=== PATIENT | male | born 1990 | race Caucasian/White ===

== ENCOUNTER 2022-11-18 16:27 | Emergency (ER) | payer MEDICAID, SELFPAY ==
--- NOTE | 2022-11-18 17:32 | ED.GENADULT ---
HPI - General Adult General Chief complaint: General Medical <DIANNE Robles - Last Filed: 11/18/22 17:33> Stated complaint: Sore Throat <DIANNE Robles - Last Filed: 11/18/22 17:33> Time Seen by Provider: 11/18/22 18:43 <DIANNE Robles - Last Filed: 11/18/22 17:33> Source: patient <DIANNE Welch - Last Filed: 11/18/22 18:50> Mode of arrival: ambulatory <DIANNE Welch - Last Filed: 11/18/22 18:50> Limitations: no limitations <DIANNE Welch Last Filed: 11/18/22 18:50> History of Present Illness HPI narrative: 32-year-old male with history of asthma presents the ER for evaluation of sore throat, tonsils swelling with white dots any noticed couple of days ago. He states his sore throat has been worsening for the last 3 days. He reports pain with swallowing. He also has some body aches and generalized fatigue. He thinks he might have strep throat. He took a dose of a leftover antibiotic with no improvement. He denies any known sick contacts. He denies any shortness of breath or fevers. <DIANNE Welch - Last Filed: 11/18/22 18:50> MD complaint: Sore throat <DIANNE Welch - Last Filed: 11/18/22 18:50> Onset (ago): day(s) (3) <DIANNE Welch - Last Filed: 11/18/22 18:50> Location: mouth and neck <DIANNE Welch Last Filed: 11/18/22 18:50> Radiation: non-radiation <DIANNE Welch Last Filed: 11/18/22 18:50> Severity: moderate <DIANNE Welch Last Filed: 11/18/22 18:50> Severity scale (1-10): 7 <DIANNE Welch Last Filed: 11/18/22 18:50> Quality: aching <DIANNE Welch Last Filed: 11/18/22 18:50> Pain Consistency: constant <DIANNE Welch Last Filed: 11/18/22 18:50> Relieving factors: none <DIANNE Welch Last Filed: 11/18/22 18:50> Exacerbating factors: eating <DIANNE Welch - Last Filed: 11/18/22 18:50> Associated symptoms: headaches and weakness <DIANNE Welch Last Filed: 11/18/22 18:50> Treatments prior to arrival: none <DIANNE Welch Last Filed: 11/18/22 18:50> Related Data Home medications: Previous Rx's Medication Instructions Recorded albuterol sulfate 90 mcg/actuation 2 puff inhalation Q4-6H PRN 11/18/22 aerosol inhaler shortness of breath or wheezing #6.7 grams amoxicillin 500 mg capsule 500 mg PO BID #20 caps 11/18/22 ibuprofen 800 mg tablet 800 mg PO Q8H PRN fever or pain 11/18/22 #10 tabs <DIANNE Robles - Last Filed: 11/18/22 17:33> Allergies/adverse reactions: Allergies Allergy/AdvReac Type Severity Reaction Status Date / Time No Known Allergies Allergy Verified 11/18/22 17:32 <DIANNE Robles - Last Filed: 11/18/22 17:33> Review of Systems Review of Systems: Yes all other systems are reviewed and are negative <DIANNE Welch Last Filed: 11/18/22 18:50> [facility] Social History Social History: Social History Advance Directives: No Advance Directives Information Provided: No <DIANNE Rolbes Last Filed: 11/18/22 17:33> Physical Exam ED Vital Signs: Vital Signs - 24 hr 11/18/22 17:33 Temperature 99.7 F Pulse Rate 87 Respiratory Rate 18 Blood Pressure 103/69 Pulse Oximetry 96 Oxygen Delivery Method Room Air BMI result Body Mass Index 21.4 <DIANNE Robles Last Filed: 11/18/22 17:33> Vital Signs - 24 hr 11/18/22 17:33 Temperature 99.7 F Pulse Rate 87 Respiratory Rate 18 Blood Pressure 103/69 Pulse Oximetry 96 Oxygen Delivery Method Room Air BMI result Body Mass Index 21.4 <DIANNE Welch Last Filed: 11/18/22 18:50> Appearance: Alert. Oriented X3. No acute distress. Head: normocephalic, atraumatic. Eyes: Pupils equal, round and reactive to light. ENT: Pharynx with moist mucous membranes. + tonsillar swelling and bilateral exudate. Uvula midline. Normal voice, handling secretions normally. Normal tympanic membranes bilaterally. Neck: Normal inspection. Neck supple. CVS: Normal heart rate and rhythm. Pulses normal. Respiratory: No respiratory distress. Breath sounds with faint end-expiratory wheeze in the left lower lobe only. Skin: Skin warm and dry. Normal skin color. Normal skin turgor. No rashes. Extremities: No lower extremity edema. No joint swelling. Neuro/psych: Oriented X 3. Grossly normal, nonfocal Normal speech and cognition. <DIANNE Welch Last Filed: 11/18/22 18:50> Course Course Course Narrative: RME performed by Ayleen Orlando PA-C. Patient is a 32 year old assigned male at presenting to the emergency department with a sore throat. Swabs ordered. Patient placed back in the waiting room pending room availability and results. <DIANNE Robles Last Filed: 11/18/22 17:33> Medical Decision Making Medical Decision Making MDM Narrative: 32-year-old male presents to the ER for evaluation of sore throat, swollen tonsils with white spots for the last 3 days. COVID is negative here. He did test negative for strep throat. However given his clinical presentation and physical exam his case is most consistent with acute strep pharyngitis. Will start on amoxicillin and treat for 10 days. He also has a slight end-expiratory wheeze in the left lower lobe. He has a history of asthma, ran out of his inhaler. Will prescribe. No rhonchi to suggest pneumonia, no productive cough. His vital signs remained stable. He is stable for discharge home with oral antibiotics, p.r.n. albuterol, NSAID for pain control. Patient agrees with plan. Workup provided per request. <DIANNE Welch Last Filed: 11/18/22 18:50> Differential Diagnosis Differential Diagnoses: The differential diagnosis associated with the presentation includes <DIANNE Welch Last Filed: 11/18/22 18:50> strep, covid, flu, rsv, other viral syndrome, bronchitis, pneumonia, no evidence of peritonsillar abcsess or retropharyngeal abscess <DIANNE Welch Last Filed: 11/18/22 18:50> Lab Data MDM Lab Attestation statement: I reviewed the patient's lab results. <DIANNE Welch - Last Filed: 11/18/22 18:50> Labs: Lab Results 11/18/22 11/18/22 Range/Units 17:54 17:56 COVID-19 (JEREMIAS) Negative (Negative) COVID-19 Clin Com See Note S. pyogenes GrpA BRIAN Negative (Negative) <DIANNE Robles Last Filed: 11/18/22 17:33> Lab Results 11/18/22 11/18/22 Range/Units 17:54 17:56 COVID-19 (JEREMIAS) Negative (Negative) COVID-19 Clin Com See Note S. pyogenes GrpA BRIAN Negative (Negative) <DIANNE Welch Last Filed: 11/18/22 18:50> External Record Review External record reviewed: Prior outpatient labs <DIANNE Welch Last Filed: 11/18/22 18:50> Prescription Management I considered prescription management with: Pain Medication and Antibiotic <DIANNE Welch Last Filed: 11/18/22 18:50> Chronic Conditions Patient?s care impacted by: Other (Asthma) <DIANNE Welch Last Filed: 11/18/22 18:50> Critical Care Time Critical Care Time Critical Care Time: No <DIANNE Welch Last Filed: 11/18/22 18:50> Discharge Plan Discharge Clinical Impression: Strep throat <DIANNE Robles Last Filed: 11/18/22 17:33> Patient Disposition: Home, Self-Care <DIANNE Robles Last Filed: 11/18/22 17:33> Instructions: Strep Throat (DC) <DIANNE Robles Last Filed: 11/18/22 17:33> Additional Instructions: Take the prescribed medication for strep throat. Complete the entire course, do not miss any doses. Recommend gargling with warm salt water 3 times per day. Recommend [id number] Chloraseptic spray and Cepacol lozengegs to help numb the back of your throat. Rest and stay hydrated, make sure drinking plenty of water. Take [id number] cold and flu medications as needed for your other symptoms. Follow-up with your doctor next week. If you develop new or worsening symptoms call 911 or come back to the ER for further evaluation. <DIANNE Robles - Last Filed: 11/18/22 17:33> Prescriptions: New amoxicillin 500 mg capsule 500 mg PO BID Qty: 20 0RF ibuprofen 800 mg tablet 800 mg PO Q8H PRN (Reason: fever or pain) Qty: 10 0RF albuterol sulfate 90 mcg/actuation HFA aerosol inhaler 2 puff inhalation Q4-6H PRN (Reason: shortness of breath or wheezing) Qty: 6.7 0RF <DIANNE Robles - Last Filed: 11/18/22 17:33> Referrals: Thor Szymanski MD [Primary Care Provider] - <DIANNE Robles - Last Filed: 11/18/22 17:33> Stand Alone Forms: Work/School Release <DIANNE Robles - Last Filed: 11/18/22 17:33>
[2022-11-18 17:33] VITALS: BP 103/69; PULSE 87; RESP 18; TEMP 37.6; O2SAT 96; BMI 21.4
[2022-11-18 18:27] LABS: IDNOW Serial# 08D9AD1C; Strep A Nucleic Acid Negative (Negative)
[2022-11-18 18:37] LABS: COVID-19 Test Negative (Negative); IDNOW Serial# 9DB6401D
== END 2022-11-18 18:56 | disposition home or self-care (01) ==
PROVIDERS: Physician Assistant Medical; Emergency Provider Emergency Medicine; PCP Emergency Medicine
DX: J02.0 Streptococcal pharyngitis (principal); Z20.822 Contact with and (suspected) exposure to COVID-19
CPT/HCPCS: 87635; 87651; 99282; 99283

== ENCOUNTER 2023-03-07 18:53 | Emergency (ER) | payer MEDICAID, SELFPAY ==
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
[2023-03-07 18:54] VITALS: BP 116/79; PULSE 133; RESP 22; O2SAT 99; BMI 22.8
[2023-03-07 18:57] VITALS: BP 115/78; PULSE 114; RESP 20; O2SAT 98
[2023-03-07] MEDS: 0.9 % Sodium Chloride 1,000 ML 999 ML IV (18:58)
[2023-03-07 19:13] LABS: MANUAL DIFF FLAG NO
[2023-03-07 19:15] LABS: Basophils Percent Auto 0.3 % (0-2); Eosinophils Absolute Auto 0.2 X10*3/uL (0.0-0.4); Eosinophils Percent Auto 1.6 % (0-4); Hematocrit 43.2 % (42.0-52.0); Hemoglobin 13.3 g/dl (14.0-18.0); Imm Gran Abs Auto 0.05 X10*3/uL (0.00-0.03); Imm Gran Pct Auto 0.5 % (0.0-0.4); Lymphocytes Absolute Auto 2.3 X10*3/uL (1.2-4.9); Mean Corpuscular HGB Conc 30.8 g/dl (31.0-36.0); Mean Corpuscular Hemoglobin 25.6 pg (27.0-33.0); Mean Corpuscular Volume 83.1 fL (80.0-98.0); Mean Platelet Volume 8.5 fL (9.4-12.4); Monocytes Absolute Auto 0.8 X10*3/uL (0.1-1.2); Monocytes Percent Auto 7.1 % (2-11); Neutrophils Absolute Auto 7.7 x10*3/uL (2.0-8.3); Neutrophils Percent Auto 69.5 % (45-73); Platelet Count 214 X10*3/uL (160-400); Red Cell Distribution Width 13.4 % (11.0-16.0); White Blood Count 11.1 X10*3/uL (4.8-10.8)
[2023-03-07 19:53] LABS: Alanine Aminotransferase 12 U/L (0-40); Albumin Level 4.6 g/dL (3.5-5.0); Alkaline Phosphatase 93 U/L (39-117); Anion Gap 27 (12-20); Aspartate Amino Transferase 15 U/L (5-37); Bilirubin Total 0.7 mg/dL (0.0-1.0); Blood Urea Nitrogen 14 mg/dL (9-16); Calcium 9.4 mg/dL (8.4-10.2); Carbon Dioxide 16 mmol/L (22-29); Chloride 103 mmol/L (96-108); Creatinine Clr Calc Pharmacy 115.7; Estimated Glomerular Filt Rate > 60; Glucose Random 142 mg/dL (60-115); Potassium 3.2 mmol/L (3.3-5.1); Sodium 143 mmol/L (135-145); Total Protein 8.1 g/dL (6.5-8.0)
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
[2023-03-07] MEDS: Ketorolac Tromethamine 30 MG/ML VIAL IVPUSH (20:55)
[2023-03-07] MEDS: Diphth,Pertus(ACell),Tet Adult 0.5 ML SYRINGE IM (20:56)
[2023-03-07 20:59] VITALS: BP 106/67; PULSE 89; RESP 15; TEMP 37.4; O2SAT 98
== END 2023-03-07 21:26 | disposition home or self-care (01) ==
PROVIDERS: Emergency Provider Internal Medicine
DX: S41.012A Laceration without foreign body of left shoulder, initial encounter (principal); S42.192A Fracture of other part of scapula, left shoulder, initial encounter for closed fracture; X99.1XXA Assault by knife, initial encounter; Y93.01 Activity, walking, marching and hiking; Y92.414 Local residential or business street as the place of occurrence of the external cause; Y99.9 Unspecified external cause status
CPT/HCPCS: 12001; 36415; 71045; 71250; 80053; 85025; 90471; 90715; 96361; 96374; 96375; 99284; 99285; J0690; J1885

== ENCOUNTER 2024-09-04 23:20 | Emergency (ER) | payer MEDICAID, SELFPAY ==
[2024-09-04 23:44] VITALS: BP 80/38; PULSE 50; RESP 18; TEMP 37.2; O2SAT 97; BMI 21.3
[2024-09-04 23:54] VITALS: BP 80/33
--- NOTE | 2024-09-04 23:54 | PC.NURSE ---
pt A&Ox4 speaking clear full sentences, denies lightheaded or dizziness, states his BP is usually low. This RN took it 3 different times all with similar result.
[2024-09-04 23:56] VITALS: BP 88/47
[2024-09-05 00:13] LABS: IDNOW Serial# 58CA691E; Strep A Nucleic Acid Negative (Negative)
[2024-09-05 00:19] LABS: COVID-19 Test Negative (Negative); IDNOW Serial# 55D5AD1C
[2024-09-05 00:22] LABS: IDNOW Serial# 6674DD1D; Influenza A Negative (Negative); Influenza B2 Negative (Negative)
--- NOTE | 2024-09-05 00:35 | ED_ITS ---
HPI - General Adult General Chief complaint: General Medical Stated complaint: strep throat? Time Seen by Provider: 09/05/24 00:09 Source: patient Mode of arrival: ambulatory Limitations: no limitations History of Present Illness ED Provider: Mateo Hammond HPI narrative: 34 yold male presents to the ED for sore throat, headache, nuasea, and subjective fevers for one week. Patient denies any other symptoms. Related Data Previous Rx's ?Medication ?Instructions ?Recorded albuterol sulfate 90 mcg/actuation 2 puff inhalation Q4-6H PRN 11/18/22 aerosol inhaler shortness of breath or wheezing #6.7 grams amoxicillin 500 mg capsule 500 mg PO BID #20 caps 11/18/22 ibuprofen 800 mg tablet 800 mg PO Q8H PRN fever or pain 11/18/22 #10 tabs cephalexin 500 mg capsule 500 mg PO QID 10 days #40 caps 03/07/23 ibuprofen 600 mg tablet 600 mg PO Q6H PRN fever or pain 03/07/23 #30 tabs Allergies Allergy/AdvReac Type Severity Reaction Status Date / Time No Known Allergies Allergy Verified 09/04/24 23:45 Review of Systems Review of Systems: Sore throat, headache, nausea subjective fever for 1 week Yes all other systems are reviewed and are negative PMFSH Social History Social History Advance Directives: No Do you have a plan to hurt others: No Plan Physical Exam ED Vital Signs: Vital Signs - 24 hr 09/04/24 23:44 09/04/24 23:54 09/04/24 23:56 Temperature 98.9 F Pulse Rate 50 Respiratory Rate 18 Blood Pressure 80/38 L 80/33 L 88/47 L Pulse Oximetry 97 Oxygen Delivery Method Room Air 09/05/24 01:13 09/05/24 01:34 Temperature 98.4 F Pulse Rate 54 54 Respiratory Rate 16 16 Blood Pressure 77/49 L 77/49 L Pulse Oximetry 97 97 Oxygen Delivery Method Room Air Room Air BMI result Body Mass Index 21.3 Const General: cooperative, healthy appearing, comfortable, no acute distress, well developed, alert, awake and Physically active Orientation/consciousness: patient oriented x3 HENMT Head: Yes normal to inspection, Yes No palpable skull fracture present and Yes normocephalic Ears: hearing grossly normal bilaterally, external ears normal, TM's normal bilaterally, TM normal on the right, TM normal on the left, EAC's normal, mastoids normal and no periauricular adenopathy Throat: Yes posterior oropharynx normal, Yes tonsils normal and Yes uvula midline Eyes General: appearance normal, both eyes and all related structures Neck Neck: Yes normal visual inspection, Yes full ROM, Yes no lymphadenopathy, Yes no meningeal signs, Yes trachea midline, Yes supple, No anterior neck swelling and No tender Chest Chest palpation & inspection: normal inspection of the chest and normal palpation of entire chest wall Resp Effort & Inspection: normal respiratory effort and able to speak in complete sentences Auscultation: clear to auscultation bilaterally Cardio Jugular venous distension: no JVD Heart sounds: S1 normal heart sound present and S2 normal heart sound present GI Inspection: Yes normal to inspection Palpation (GI): Soft to palpation, not firm, nontender, no guarding and not rigid General: Yes no CVA tenderness Back/Spine/Pelvis Back: no CVA tenderness and No back tenderness Skin General skin exam: no rashes or lesions noted, elasticity normal and turgor normal Neuro General: patient oriented x3, gait normal, tone normal, moves all extremities, Normal light touch and pain sensation, no meningeal signs, no focal motor deficits, CN's II-XI intact bilaterally and normal sensation to monofilament Extrem General: Yes normal to inspection, Yes full ROM and Yes capillary refill normal Psych Appearance: grossly normal, well kempt and not disheveled Medical Decision Making Medical Decision Making MDM Narrative: [age] male presents to ED for sore throat nausea headache strep fevers. Patient has COVID influenza strep came back negative. Patient found to be hypotensive. Patient states blood pressure 80'shhis baseline. It was discussed with patient to have labs drawn and have fluids given due to low blood pressure and for patient to be re-evaluated. Patient refused medical intervention states he would like to be discharged. Patient was informed blood pressure this low can lead to due to hypoperfusion and organ failure but patient is still willing to sign out against medical advice. Patient explained risk of . Patient explained worrisome signs and informed to return to the ED immediately. Differential Diagnosis Differential Diagnoses: The differential diagnosis associated with the presentation includes (COVID, influenza, strep, sepsis hypotension) Admission/Observation Consideration of admission/observation: Escalation of care including admission/observation considered Lab Data MDM Lab Attestation statement: I reviewed the patient's lab results. Labs: Lab Results 09/04/24 Range/Units 23:57 COVID-19 (JEREMIAS) Negative (Negative) COVID-19 Clin Com See Note Influenza Type A (BRIAN) Negative (Negative) Influenza Type B (BRIAN) Negative (Negative) Influenza A & B Note See Note S. pyogenes GrpA BRIAN Negative (Negative) Independent Historian Clinical information obtained from an independent historian. History obtained from or confirmed by: Other (Patient) Discharge Plan Discharge Clinical Impression: Hypotension, Sore throat Patient Disposition: Left Against Medical Advice Instructions: Pharyngitis (ED), Hypotension (ED) Additional Instructions: Recommend follow-up with primary care provider. Return to the ED immediately for any dizziness, chest pain, shortness of breath, weakness, drooling, change in voice, coughing up blood, chest pain, or any other concerning symptoms. Prescriptions: No Action amoxicillin 500 mg capsule 500 mg PO BID Qty: 20 0RF ibuprofen 800 mg tablet 800 mg PO Q8H PRN (Reason: fever or pain) Qty: 10 0RF albuterol sulfate 90 mcg/actuation HFA aerosol inhaler 2 puff inhalation Q4-6H PRN (Reason: shortness of breath or wheezing) Qty: 6.7 0RF cephalexin 500 mg capsule 500 mg PO QID 10 Days Qty: 40 0RF ibuprofen 600 mg tablet 600 mg PO Q6H PRN (Reason: fever or pain) Qty: 30 0RF Stand Alone Forms: Against Medical Advice Interventions: ED Discharge Assessment Last Done: 09/05/24 01:34 Discharge Date/Time: 09/05/24 01:34 Print Language: Kinyarwanda
[2024-09-05 01:13] VITALS: BP 77/49; PULSE 54; RESP 16; O2SAT 97
--- NOTE | 2024-09-05 01:19 | PC.NURSE ---
Patient's BP rechecked. Used appropriate sized BP cuff, checked both arms. BP 77/49. Patient stated That is my normal blood pressure. My doctor knows about it . DIANNE Hammond came to bedside, spoke with patient regarding plan to obtain additional labs and administer IV fluids for hypotension. Patient declined and wishes to leave against medical advice. DIANNE Hammond reviewed risks associated with leaving AMA, which patient understands. Patient still wishes to leave against medical advice.
[2024-09-05 01:34] VITALS: BP 77/49; PULSE 54; RESP 16; TEMP 36.9; O2SAT 97
== END 2024-09-05 01:34 | disposition left against medical advice (07) ==
PROVIDERS: Emergency Provider Emergency Medicine
DX: J02.9 Acute pharyngitis, unspecified (principal); I95.9 Hypotension, unspecified; R51.9 Headache, unspecified; R11.0 Nausea; R50.9 Fever, unspecified; Z03.818 Encounter for observation for suspected exposure to other biological agents ruled out
CPT/HCPCS: 87502; 87635; 87651; 99282; 99283

== ENCOUNTER 2024-09-19 23:14 | Emergency (ER) | payer MEDICAID, SELFPAY ==
--- NOTE | 2024-09-19 | ECG_ITS ---
Test Reason : CHEST TIGHTNESS Blood Pressure : */* mmHG Vent. Rate : 46 BPM Atrial Rate : 46 BPM P-R Int : 168 ms QRS Dur : 96 ms QT Int : 466 ms P-R-T Axes : 65 11 25 degrees QTcB Int : 407 ms Sinus bradycardia with sinus arrhythmia Otherwise normal ECG No previous ECGs available Referred By: Generic ED Physician Electronically Signed By: Curt Dumont
--- NOTE | ~2024-09-19 | XR_ITS ---
CLINICAL HISTORY: cough 1 view chest x-ray Comparison: CR/OR/SR - XR CHEST 1V - 03/07/23 18:52 EDT Findings: No consolidation or effusion. Normal size heart. No acute fracture. IMPRESSION: 1. No acute findings. This document has been electronically signed by: Inderjit Leiva MD, PHD on 09/19/2024 23:59:13
[2024-09-19 23:25] VITALS: BP 88/51; PULSE 50; RESP 16; TEMP 36.4; O2SAT 96; BMI 21.3
[2024-09-19 23:42] LABS: MANUAL DIFF FLAG NO
[2024-09-19 23:44] LABS: Basophils Percent Auto 0.3 % (0-2); Eosinophils Absolute Auto 0.2 X10*3/uL (0.0-0.4); Hematocrit 35.6 % (42.0-52.0); Hemoglobin 11.7 g/dl (14.0-18.0); Imm Gran Abs Auto 0.01 X10*3/uL (0.00-0.03); Imm Gran Pct Auto 0.1 % (0.0-0.4); Lymphocytes Absolute Auto 1.5 X10*3/uL (1.2-4.9); Lymphocytes Percent Auto 21.7 % (20-40); Mean Corpuscular HGB Conc 32.9 g/dl (31.0-36.0); Mean Corpuscular Hemoglobin 26.4 pg (27.0-33.0); Mean Corpuscular Volume 80.2 fL (80.0-98.0); Mean Platelet Volume 9.4 fL (9.4-12.4); Monocytes Absolute Auto 0.5 X10*3/uL (0.1-1.2); Monocytes Percent Auto 8.1 % (2-11); Neutrophils Absolute Auto 4.5 x10*3/uL (2.0-8.3); Neutrophils Percent Auto 66.8 % (45-73); Platelet Count 176 X10*3/uL (160-400); Red Blood Count 4.44 X10*6/uL (4.60-5.80); Red Cell Distribution Width 13.6 % (11.0-16.0); White Blood Count 6.7 X10*3/uL (4.8-10.8)
[2024-09-20 00:06] LABS: Alanine Aminotransferase 10 U/L (0-40); Alkaline Phosphatase 91 U/L (39-117); Anion Gap 14 (12-20); Aspartate Amino Transferase 18 U/L (5-37); Bilirubin Total 0.4 mg/dL (0.0-1.0); Blood Urea Nitrogen 22 mg/dL (9-16); Carbon Dioxide 26 mmol/L (22-29); Chloride 109 mmol/L (96-108); Creatinine Clr Calc Pharmacy 138.7; Estimated Glomerular Filt Rate > 60; Glucose Random 109 mg/dL (60-115); Potassium 4.5 mmol/L (3.3-5.1); Sodium 144 mmol/L (135-145); Total Protein 7.2 g/dL (6.5-8.0)
--- NOTE | 2024-09-20 00:09 | PC.NURSE ---
Dr. Palencia notified of low BP's 88/51 a triage, 99/68 at ED and HR 40's. Patient denies dizziness, lightheadedness, SOB, headache at this time. EKG completed and reviewed by MD Palencia.
[2024-09-20 00:20] LABS: Influenza A PCR NEGATIVE (Negative); Influenza B PCR NEGATIVE (Negative); Resp Syncy Virus RNA Qual PCR NEGATIVE (Negative); SARS COV2 PCR INHOUSE NEGATIVE (Negative)
[2024-09-20 00:24] LABS: IDNOW Serial# 58CA691E; Strep A Nucleic Acid Negative (Negative)
[2024-09-20 00:32] VITALS: BP 89/58; PULSE 41; RESP 12; TEMP 36.4; O2SAT 100
--- OUTSIDE RECORDS SUMMARY | 2024-09-20 01:10 | XMS_ITS | Encounter Summary ---
Author Organization [facility] Address [address] [place] [address] Phone Care Team Providers Care Bi Application Developer Name Role Phone Pedro Pablo Moore MD Primary Care Provider [phone] Encounter Details Date Type Department Care Team (Late st Contact Info) Description 06/06/2010 Documentation [facility] [place] [facility] [address] [place], [place] [phone] Family Medicine, Physician [address], [place] [address] Social History Tobacco Use Types Packs/Day Years Used Date Smoking Tobacco: Never Assessed Sex and Gender Information Value Date Recorded Sex Assigned at Not on file Legal Sex Male 4:40 PM EDT Gender Identity Not on file Sexual Orientation Not on file documented as of this encounter Plan of Treatment Not on file documented as of this encounter Visit Diagnoses Not on filedocumented in this encounter Care Teams Bi Application Developer Relationship Specialty Start Date End Date Pedro Pablo Moore MD [address] [place] [address] BLANCA Shankar [address] PCP - General 03/23/17 09/27/22 documented as of this encounter
--- OUTSIDE RECORDS SUMMARY | 2024-09-20 01:10 | XMS_ITS | Encounter Summary ---
Author Organization [facility] Address [address] [place] [phone] Phone Care Team Providers Care Paymaster Of Purses Name Role Phone Pedro Pablo Moore MD Primary Care Provider [phone] Encounter Details Date Type Department Care Team (Late st Contact Info) Description 05/30/2011 Documentation [facility] [place] [address] [place], [place] [phone] Family Medicine, Physician [address], [place] [address] Social History Tobacco Use Types Packs/Day Years [...] on filedocumented in this encounter Care Teams Paymaster Of Purses Relationship Specialty Start Date End Date Pedro Pablo Moore MD [address] [place] [address] BLANCA Shankar [address] PCP - General 03/23/17 09/27/22 documented as of this encounter
--- OUTSIDE RECORDS SUMMARY | 2024-09-20 01:10 | XMS_ITS | Encounter Summary ---
Author Organization [employer] Address [address] [place] [address] Care Team Providers Care Vegetable Harvest Machine Operator Name Role Phone Unavailable Primary Care Provider Unavailabl e Encounter Details Date Type Department Care Team (Late st Contact Info) Description 09/04/2024 Orders Only GENERIC EXTERNAL DATA DEPARTMENT Provider, Generic External Data Social History Tobacco Use Types Packs/Day Years Used Date Smoking Tobacco: Never Smokeless Tobacco: Never Sex and Gender Information Value Date Recorded Sex Assigned at Male 06/12/2022 10:29 AM EDT Legal Sex Male 10:29 AM EDT Gender Identity Choose not to disclose 10:29 AM EDT Sexual Orientation Choose not to disclose 2021 10:29 AM EDT documented as of this encounter Plan of Treatment Not on file documented as of this encounter Procedures Procedure Name Priority Date/Time Associated Diagnosis Comments XR CHEST 1 VIEW Routine 09/19/2024 11:59 PM EST STREP A NUCLEIC ACID Routine 09/19/2024 11:32 PM EST SARS COV2/INFLUENZA A/B AND RSV RNA QL NAAT Routine 09/19/2024 11:32 PM EST CBC WITH AUTO DIFFERENTIAL Routine 09/19/2024 11:32 PM EST COMPREHENSIVE METABOLIC PANEL Routine 09/19/2024 11:32 PM EST INFLUENZA A B2 ID NOW ([place]) Routine 09/04/2024 11:57 PM EST STREP A NUCLEIC ACID Routine 09/04/2024 11:57 PM EST COVID-19 ID NOW ([place]) Routine 09/04/2024 11:57 PM EST documented in this encounter Results * XR Chest 1 View (09/19/2024 11:59 PM EST) Anatomical Region Laterality Modality Chest Radiographic Janet ging 09/19/2024 11:5 9 PM EST Narrative 09/20/2024 12:01 AM EST ? [facility] ?[address] ?[place] [address] ?XRay Report ? Signed ? Patient: MoeTaiwo prieto ?MR#: [id number] ? : 1990 ?Acct:[id number] ? Age/Sex: 34 / M ?ADM Date: 09/19/24 ? Loc: HO.ED ? Attending Dr: ? Ordering Physician: Generic ED Physician ?? Date of Service: 09/19/24 ?? Procedure(s): XR chest 1V ?? Accession Number(s): [id number] ? cc: Generic ED Physician; [facility] ? CLINICAL HISTORY: cough ? 1 view chest x-ray ? Comparison: CR/MN/SR - XR CHEST 1V - 03/07/23 18:52 EDT ? Findings: ?? No consolidation or effusion. ?? Normal size heart. ?? No acute fracture. ? IMPRESSION: ?? 1. No acute findings. ? This document has been electronically signed by: Inderjit Leiva MD, ?? PHD on 09/19/2024 23:59:13 ? Dictated By: ?Inderjit Leiva MD ? Signed By: ?<Electronically signed by Inderjit Leiva MD in OV> ? 09/20/24 0000 ? DD/ 58 ? TD/TT: 09/19/242358 ? Filter Cloth Maker: ? Procedure Note Leticia Mcnamara - 09/20/[address] [address] XRay Report Signed Patient: Elder Moe#: [id number] : 1990Acct:[id number] Age/Sex: 34 / MADM Date: 09/19/24 Loc: HO.ED Attending Dr: Ordering Physician: Generic ED Physician Date of Service: 09/19/24 Procedure(s): XR chest 1V Accession Number(s): [id number] cc: Generic ED Physician; [facility] CLINICAL HISTORY: cough 1 view chest x-ray Comparison: CR/MN/SR - XR CHEST 1V - 03/07/23 18:52 EDT Findings: No consolidation or effusion. Normal size heart. No acute fracture. IMPRESSION: 1. No acute findings. This document has been electronically signed by: Inderjit Leiva MD, PHD on 09/19/2024 23:59:13 Dictated By: Inderjit Leiva MD Signed By: <Electronically signed by Inderjit Leiva MD in OV> 09/20/24 0000 DD/ 58 TD/TT: 09/19/242358 Filter Cloth Maker: [facility] External Provider IMG XR PROCEDURES Final Result * Strep A Nucleic Acid (09/19/2024 11:32 PM EST) IDNOW SERIAL# [id number] [facility] Strep A Nucleic Acid Negative Negative [facility] Comment:All test results mus t be correlated with clinical findings.This test has not been evaluated for monitoring treatment ofinfection.Additional follow-up testing using the culture method isrequired if the result is negative and clinical symptomspersist, or in the event of an acute rheumatic feveroutbreak. 09/19/2024 11:3 2 PM EST 09/19/2024 11:41 PM EST Generic External Data Provider LAB MICROBIOLOGY - GENERAL ORDERABLES Final Result [facility] [address] [place] [address] [phone] * SARS-CoV-2 RNA, Influenza A/B, and RSV RNA, Ql NAAT (09/19/2024 11:32 PM EST) Influenza A PCR NEGATIVE Negative [facility] Influenza B PCR NEGATIVE Negative [facility] Resp Syncy Virus RNA Qual PCR NEGATIVE Negative [facility] SARS COV2 PCR NEGATIVE Negative [facility] Comment:All test results mus t be correlated with clinical findings.Negative results do not preclude SARS-CoV2, influenza Avirus, influenza B virus and/or RSV infectionand should not be used as the sole basis for treatment orother patient management decisions. Negative results must becombined with clinical observations, patient history, andepidemiological information.This test has not been evaluated for monitoring treatment ofinfection.This test has been authorized by the FDA under an EmergencyUse Authorization (EUA) for use by authorized laboratories.Testing performed on the [employer] GeneXpert utilizingreal-time RT-PCR.All SARS CoV2 and positive influenza A/B results arereported to [facility]. 09/19/2024 11:3 2 PM EST 09/19/2024 11:41 PM EST Generic External Data Provider LAB MICROBIOLOGY - GENERAL ORDERABLES Final Result [facility] [address] [place] [phone] * (ABNORMAL) Comprehensive Metabolic Panel (09/19/2024 11:32 PM EST) Sodium 144 135 - 145 mmol/L [facility] Potassium 4.5 3.3 - 5.1 mmol/L [facility] Chloride 109(H) 96 - 108 mmol/L [facility] Carbon Dioxide 26 22 - 29 mmol/L [facility] Anion Gap 14 12 - 20 [facility] Urea Nitrogen (BUN) 22(H) 9 - 16 mg/dL [facility] Creatinine, Serum 0.68 0.5 - 1.4 mg/dL [facility] Creatinine Clr Calc Pharmacy 138.7 [facility] Comment:eGFR (calculated fro m the MDRD study equation) and eCrCl(calculated from the Cockcroft-Gault equation) are based ondifferent parameters and may not yield comparable results.If eCrCl result is absurd, please check patient'sheight/weight. Estimated Glomerular Filt Rate >60 [facility] Comment:Chronic Kidney Disea se: Estimated GFR < 60 mL/min/1.00h9Tzprik Kidney Disease: Estimated GFR < 15 mL/min/1.73m2 Glucose 109 60 - 115 mg/dL [facility] Calcium 9.0 8.4 - 10.2 mg/dL [facility] Bilirubin, Total 0.4 0.0 - 1.0 mg/dL [facility] Aspartate Amino Transferase 18 5 - 37 U/L [facility] Alanine Aminotransferase 10 0 - 40 U/L [facility] Total Protein 7.2 6.5 - 8.0 g/dL [facility] Albumin Level 4.0 3.5 - 5.0 g/dL [facility] Alkaline Phosphatase 91 39 - 117 U/L [facility] 09/19/2024 11:3 2 PM EST 09/19/2024 11:41 PM EST us Generic External Data Provider LAB BLOOD ORDERAB LES Final Result [facility] [address] [place] [address] [phone] * (ABNORMAL) CBC auto differential (09/19/2024 11:32 PM EST) White Blood Count 6.7 4.8 - 10.8 X10*3/uL [facility] Red Blood Count 4.44(L) 4.60 - 5.80 X10*6/uL [facility] Hemoglobin 11.7(L) 14.0 - 18.0 g/dl [facility] Hematocrit 35.6(L) 42.0 - 52.0 % [facility] Mean Corpuscular Volume 80.2 80.0 - 98.0 fL [facility] Mean Corpuscular Hemoglobin 26.4(L) 27.0 - 33.0 pg [facility] Mean Corpuscular HGB Conc 32.9 31.0 - 36.0 g/dl [facility] Red Cell Distribution Width 13.6 11.0 - 16.0 % [facility] Platelet Count 176 160 - 400 X10*3/uL [facility] Mean Platelet Volume 9.4 9.4 - 12.4 fL [facility] Neutrophils Percent Auto 66.8 45 - 73 % [facility] Imm Gran Pct Auto 0.1 0.0 - 0.4 % [facility] Lymphocytes Percent Auto 21.7 20 - 40 % [facility] Monocytes Percent Auto 8.1 2 - 11 % [facility] Eosinophils Percent Auto 3.0 0 - 4 % [facility] Basophils Percent Auto 0.3 0 - 2 % [facility] NRBC Pct Auto 0.0 0.0 - 0.2 /100WBC [facility] Neutrophils Absolute Auto 4.5 2.0 - 8.3 x10*3/uL [facility] Imm Gran Abs Auto 0.01 0.00 - 0.03 X10*3/uL [facility] Lymphocytes Absolute Auto 1.5 1.2 - 4.9 X10*3/uL [facility] Monocytes Absolute Auto 0.5 0.1 - 1.2 X10*3/uL [facility] Eosinophils Absolute Auto 0.2 0.0 - 0.4 X10*3/uL [facility] Basophils Absolute Auto 0.0 0.0 - 0.2 X10*3/uL [facility] NRBC Abs Auto 0.000 0.0 - 0.012 X10*3/uL [facility] 09/19/2024 11:3 2 PM EST 09/19/2024 11:41 PM EST us Generic External Data Provider LAB BLOOD ORDERAB LES Final Result [facility] [address] [place] [phone] * Influenza A B2 ID NOW ([place]) (09/04/2024 11:57 PM EST) IDNOW SERIAL# [id number] [facility] Influenza A Negative Negative [facility] Influenza B2 Negative Negative [facility] Influenza A B2 Note See Note [facility] Comment:The [place] ID NOW In fluenza A B2 test is used for thequalitative detection of influenza A and B from patientswith signs and symptoms of respiratory infection.Negative results do not preclude influenza virus infectionand should not be used as the sole basis for diagnosis,treatment or other patient management decisions.There is a risk of false negative results due to thepresence of variants in the viral targets of the assay, lowlevels of virus in the specimen and co- infection withRespiratory Syncytial Virus. 09/04/2024 11:5 7 PM EST 09/05/2024 us Generic External Data Provider LAB MICROBIOLOGY - GENERAL ORDERABLES Final Result [facility] [address] [place] [phone] * COVID-19 ID NOW ([place]) (09/04/2024 11:57 PM EST) IDNOW SERIAL# [id number] [facility] COVID-19 TEST Negative Negative [facility] COVID-19 NOTE See Note [facility] Comment: Results are for the identification of SARS-CoV2 RNA. TheSARS-CoV2 RNA is generally detectable in respiratory samplesduring the acute phase of infection. Positive results areindicative of the presence of SARS-CoV-2 RNA; clinicalcorrelation with patient history and other diagnosticinformation is necessary to determine patient infectionstatus. Positive results do not rule out bacterial infectionor co- infection with other viruses.Testing facilities within the [facility] and itsterritories are required to report all positive results tothe appropriate public health authorities.Negative results should be treated as presumptive and, ifinconsistent with clinical signs and symptoms or necessaryfor patient management, should be tested with differentauthorized or cleared molecular tests. Negative results donot preclude SARS-CoV2 RNA infection and should not be usedas the sole basis for patient management decisions. Negativeresults should be considered in the context of a patient'srecent exposures, history and the presence of clinical signsand symptoms consistent with COVID-19.This test has been authorized by the FDA under an EmergencyUse Authorization (EUA) for use by authorized laboratories.Testing performed on the [employer] ID NOW utilizing NAAT. 09/04/2024 11:5 7 PM EST 09/05/2024 Generic External Data Provider LAB MOLECULAR RHODA GNOSTICS ORDERABLES Final Result Performing Organization Address [facility] Co de Phone Number [facility] [address] [place] [phone] * Strep A Nucleic Acid (09/04/2024 11:57 PM EST) IDNOW SERIAL# [id number] [facility] Strep A Nucleic Acid Negative Negative [facility] Comment:All test results mus t be correlated with clinical findings.This test has not been evaluated for monitoring treatment ofinfection.Additional follow-up testing using the culture method isrequired if the result is negative and clinical symptomspersist, or in the event of an acute rheumatic feveroutbreak. 09/04/2024 11:5 7 PM EST 09/05/2024 Generic External Data Provider LAB MICROBIOLOGY - GENERAL ORDERABLES Final Result Performing Organization Address [facility] Co de Phone Number [facility] [address] [place] [phone] documented in this encounter Visit Diagnoses Not on filedocumented in this encounter
--- OUTSIDE RECORDS SUMMARY | 2024-09-20 01:10 | XMS_ITS | Clinical Summary ---
Author Organization [facility] Address [address] [place] [phone] Phone Care Team Providers Care Celery Cutter Name Role Phone Unavailable Primary Care Provider Unavailabl e Immunizations Immunization Administration Dates Next Due DTP 11/20/1995, 3,02/24/1992,12/24,1991 H1N1 07/26/2009 Hep B, ped/adol 11/08/1995,07/18/1995,05/10/1995 Hib (PRP-T) 10/18/1992, 2,1991,10/12 Influenza, injectable, trivalent 07/26/2009,08/2007 MMR 11/20/1995,10/18/1992 Meningococcal Conj (Menactra) MCV4P 03/29/2006 OPV 11/20/1995, 3,1991,10/12 Td (adult) (MBL), 2 Lf tetan us toxoid, PF, adsorbed 04/02/2003 Tdap 06/27/2007 Family History Relation Name Status Comments Other Alive Family h/o: Ali ve and well Social History Tobacco Use Types Packs/Day Years Used Date Smoking Tobacco: Never Assessed Sex and Gender Information Value Date Recorded Sex Assigned at Not on file Legal Sex Male 4:40 PM EDT Gender Identity Not on file Sexual Orientation Not on file Last Filed Vital Signs Vital Sign Reading Time Taken Comments Blood Pressure - - Pulse - - Temperature 36.3 ??C (97.4 ??F) 06/01/2011 12:00 AM E DT Respiratory Rate - - Oxygen Saturation - - Inhaled Oxygen Concentration - - Weight 58.1 kg (128 lb) 06/01/2011 12:00 AM EDT Height 174 cm (5' 8.5 ) 05/26/2011 12:00 AM EDT Body Mass Index 19.18 05/26/2011 12:00 AM EDT Plan of Treatment Health Maintenance Due Date Last Done Comments Varicella Vaccines (1 of 2 - 13+ 2-dose series) 2004 Consider Men B Vaccine (1 of 2 - Bexsero 2-dose series) 2007 DTaP,Tdap,and Td Vaccines (7 - Td or Tdap) 06/27/2017 06/27/2007, 04/02/2003, 11/20/1995, Additional history exists Influenza Vaccines (#1) 2024 07/26/2009, 07/13 COVID-19 Vaccine ( season) 2024 HIB Vaccines Completed 10/18/1992, 02/10, 1991, Additional history exists Hepatitis B Vaccines Completed 11/08/1995, 07/18/1995, 05/10/1995 IPV Vaccines Completed 11/20/1995, 04/14, 1991, Additional history exists MMR Vaccines Completed 11/20/1995, 10/18/1992 Meningococcal Vaccine Aged Out 03/29/2006 No kayla susi eligible based on patient's age to complete this topic HPV Vaccines Aged Out No longer eligi ble based on patient's age to complete this topic Hepatitis A Vaccines Aged Out No long er eligible based on patient's age to complete this topic Men B Vaccine Aged Out No longer elig ible based on patient's age to complete this topic Pneumococcal Vaccine Aged Out No long er eligible based on patient's age to complete this topic
--- OUTSIDE RECORDS SUMMARY | 2024-09-20 01:10 | XMS_ITS | Encounter Summary ---
Author Organization [facility] Address [address] [place] [phone] Phone Care Team Providers Care Manager Culinary Name Role Phone Pedro Pablo Moore MD Primary Care Provider [phone] Encounter Details Date Type Department Care Team (Late st Contact Info) Description 03/29/2017 Conversion Encounter [facility] [place] [address] [place] [address] Social History Tobacco Use Types Packs/Day Years [...] on filedocumented in this encounter Care Teams Manager Culinary Relationship Specialty Start Date End Date Pedro Pablo Moore MD [address] [facility] [place] [address] PCP - General 03/23/17 09/27/22 documented as of this encounter
--- OUTSIDE RECORDS SUMMARY | 2024-09-20 01:11 | XMS_ITS | Clinical Summary ---
Author Organization [employer] Address [address] [facility] [address] [place] [address] Care Team Providers Care Core Dipper Name Role Phone Unavailable Primary Care Provider Unavailabl e Allergies No known active allergies Medications albuterol 108 (90 Base) MCG/ACT inhalerIndication s:Asthma exacerbation, non-allergic, mild intermittent Inhale 2 puffs every 6 (six) hours if needed for wheezing for up to 10 days. 18 g 1 3 Active nicotine (Nicoderm CQ) 21 MG/24HR patchIndications: Asthma exacerbation, non-allergic, mild intermittent Place 1 patch on the skin 1 (one) time each day at the same time for 28 days. 28 patch 2 3 Active Active Problems Problem Noted Date Diagnosed Date Asthma exacerbation, non-allergic, mild intermit tent 08/25/2022 SOB (shortness of breath) 08/25/2022 Viral URI 08/25/2022 Encounters Date Type Department Care Team Description 09/04/2024 Orders Only GENERIC EXTERNAL DATA DEPARTMENT Provider, Generic External Data from Last 3 Months Social History Tobacco Use Types Packs/Day Years Used Date Smoking Tobacco: Never Smokeless Tobacco: Never Tobacco Cessation:Counseling Given: Not Answered Sex and Gender Information Value Date Recorded Sex Assigned at Male 06/12/2022 10:29 AM EDT Legal Sex Male 10:29 AM EDT Gender Identity Choose not to disclose 10:29 AM EDT Sexual Orientation Choose not to disclose 2021 10:29 AM EDT Last Filed Vital Signs Vital Sign Reading Time Taken Comments Blood Pressure 94/68 08/25/2022 1:00 PM EST Pulse 119 08/25/2022 1:00 PM EST Temperature 36.9 ??C (98.5 ??F) 08/25/2022 1:00 PM ES T Respiratory Rate 17 08/25/2022 1:00 PM EST Oxygen Saturation 91% 08/25/2022 1:00 PM EST Inhaled Oxygen Concentration - - Weight 64.6 kg (142 lb 6.4 oz) 08/25/2022 1:00 P M EST Height 172.7 cm (5' 8 ) 08/25/2022 1:00 PM EST Body Mass Index 21.65 08/25/2022 1:00 PM EST Plan of Treatment Health Maintenance Due Date Last Done Comments Depression Screening 1991 SDOH Screening 1991 Alcohol/Substance Use Screening 2003 Family Planning (PISQ) 2006 Pneumococcal Vaccine: Pediatrics (0 to 5 Years) and At-Risk Patients (6 to 49) Years) (1 of 2 - PCV) 2010 Tobacco Screening 08/25/2023 08/25/2022 COVID-19 Vaccine (1 - season) 2024 Influenza Vaccine (#1) 2024 9, 07/26/2009, 07/13/2008 DTaP/Tdap/Td Vaccines (8 - Td or Tdap) 04/02/2028 04/02/2018, 06/27/2007, 04/02/2003, Additional history exists Zoster Vaccines (1 of 2) 2041 RSV Patients and Patients Aged 60 years or older (1 - 1-dose 75+ series) 2066 HIB Vaccines Completed 10/18/1992, 02/10, 1991, Additional history exists Hepatitis B Vaccines Completed 11/08/1995, 07/18/1995, 05/10/1995 IPV Vaccines Completed 11/20/1995, 04/14, 1991, Additional history exists Meningococcal Vaccine Aged Out 03/29/2006 No kayla susi eligible based on patient's age to complete this topic Hepatitis A Vaccines Aged Out 03/24/2019 No long er eligible based on patient's age to complete this topic HIV Screening Completed 10/28/2019 Hepatitis C Screening Completed 10/28/2019 HPV Vaccines Aged Out No longer eligi ble based on patient's age to complete this topic RSV under 20 months Aged Out No longe r eligible based on patient's age to complete this topic Rotavirus Vaccines Aged Out No longer eligible based on patient's age to complete this topic Procedures Procedure Name Priority Date/Time Associated Diagnosis Comments XR CHEST 1 VIEW Routine 09/19/2024 11:59 PM EST COMPREHENSIVE METABOLIC PANEL Routine 09/19/2024 11:32 PM EST CBC WITH AUTO DIFFERENTIAL Routine 09/19/2024 11:32 PM EST STREP A NUCLEIC ACID Routine 09/19/2024 11:32 PM EST SARS COV2/INFLUENZA A/B AND RSV RNA QL NAAT Routine 09/19/2024 11:32 PM EST COVID-19 ID NOW ([employer]) Routine 09/04/2024 11:57 PM EST INFLUENZA A B2 ID NOW ([facility]) Routine 09/04/2024 11:57 PM EST STREP A NUCLEIC ACID Routine 09/04/2024 11:57 PM EST ZZZ HISTORICAL HEPATITIS C ANTIBODY RFLX Routine 10/28/2019 12:00 PM EDT ZZZ HISTORICAL HIV AB/AG Routine 10/28/2019 12:00 PM EDT from Last 3 Months or Most Recently Relevant to Health Maintenance Results * XR Chest 1 View (09/19/2024 11:59 PM EST) Anatomical Region Laterality Modality Chest Radiographic Janet ging 09/19/2024 11:5 9 PM EST Narrative 09/20/2024 12:01 AM EST ? [facility] ?[address] ?[place] [address] ?XRay Report ? Signed ? Patient: Moe,Taiwo ?MR#: [id number] ? : 1990 ?Acct:[id number] ? Age/Sex: 34 / M ?ADM Date: 02/07/25 ? Loc: HO.ED ? Attending Dr: ? Ordering Physician: Generic ED Physician ?? Date of Service: 09/19/24 ?? Procedure(s): XR chest 1V ?? Accession Number(s): [id number] ? cc: Generic ED Physician; [facility] ? CLINICAL HISTORY: cough ? 1 view chest x-ray ? Comparison: CR/AZ/SR - XR CHEST 1V - 03/07/23 18:52 [...] ? DD/ 58 ? TD/TT: 09/19/242358 ? Operating Room Tech: ? Procedure Note Anders, Image - 09/20/2024 [place] [address] XRay Report Signed Patient: Elder Moe#: [id number] : 1990Acct:[id number] Age/Sex: 34 / MADM Date: 09/19/24 Loc: .ED Attending Dr: Ordering Physician: Generic ED Physician Date of Service: 09/19/24 Procedure(s): XR chest 1V Accession Number(s): [id number] cc: Generic ED Physician; [facility] CLINICAL HISTORY: cough 1 view chest x-ray Comparison: CR/AZ/SR - XR CHEST 1V - 03/07/23 18:52 EDT Findings: No consolidation or effusion. Normal size heart. No acute fracture. IMPRESSION: 1. No acute findings. This document has been electronically signed by: Inderjit Leiva MD, PHD on 09/19/2024 23:59:13 Dictated By: Inderjit Leiva MD Signed By: <Electronically signed by Inderjit Leiva MD in OV> 09/20/24 0000 DD/ 58 TD/TT: 09/19/242358 Operating Room Tech: [facility] External Provider IMG XR PROCEDURES Final Result * Strep A Nucleic Acid (09/19/2024 11:32 PM EST) Only the most recent of2 resultswithin the time period is included. IDNOW SERIAL# [id number] [facility] Strep A Nucleic Acid Negative Negative [facility] Comment:All test results mus t [...] LAB MICROBIOLOGY - GENERAL ORDERABLES Final Result [facility] [address] [place] [phone] * SARS-CoV-2 RNA, Influenza A/B, and RSV RNA, Ql NAAT (09/19/2024 11:32 PM EST) Influenza A PCR NEGATIVE Negative [facility] Influenza B PCR NEGATIVE Negative [facility] Resp Syncy Virus RNA Qual PCR NEGATIVE Negative [facility] SARS COV2 PCR NEGATIVE Negative [facility] Comment:All test results mus t [...] use by authorized laboratories.Testing performed on the [employer] GeneXpert utilizingreal-time RT-PCR.All SARS CoV2 and positive influenza A/B results arereported to [facility]. 09/19/2024 11:3 2 PM EST 09/19/2024 11:41 PM EST us Generic External Data Provider LAB MICROBIOLOGY - GENERAL ORDERABLES Final Result [facility] [address] [place] [phone] * (ABNORMAL) CBC auto differential (09/19/2024 11:32 PM EST) White Blood Count 6.7 4.8 - 10.8 X10*3/uL [facility] Red Blood Count 4.44(L) 4.60 - 5.80 X10*6/uL [facility] Hemoglobin 11.7(L) 14.0 - 18.0 g/dl [facility] Hematocrit 35.6(L) 42.0 - 52.0 % [facility] Mean Corpuscular Volume 80.2 80.0 - 98.0 fL [facility] Mean Corpuscular Hemoglobin 26.4(L) 27.0 - 33.0 pg [facility] Mean Corpuscular HGB Conc 32.9 31.0 - 36.0 g/dl [facility] Red Cell Distribution Width 13.6 11.0 - 16.0 % [facility] Platelet Count 176 160 - 400 X10*3/uL [facility] Mean Platelet Volume 9.4 9.4 - 12.4 fL [facility] Neutrophils Percent Auto 66.8 45 - 73 % [facility] Imm Gran Pct Auto 0.1 0.0 - 0.4 % [facility] Lymphocytes Percent Auto 21.7 20 - 40 % [facility] Monocytes Percent Auto 8.1 2 - 11 % [facility] Eosinophils Percent Auto 3.0 0 - 4 % [facility] Basophils Percent Auto 0.3 0 - 2 % [facility] NRBC Pct Auto 0.0 0.0 - 0.2 /100WBC [facility] Neutrophils Absolute Auto 4.5 2.0 - 8.3 x10*3/uL [facility] Imm Gran Abs Auto 0.01 0.00 - 0.03 X10*3/uL [facility] Lymphocytes Absolute Auto 1.5 1.2 - 4.9 X10*3/uL [facility] Monocytes Absolute Auto 0.5 0.1 - 1.2 X10*3/uL [facility] Eosinophils Absolute Auto 0.2 0.0 - 0.4 X10*3/uL [facility] Basophils Absolute Auto 0.0 0.0 - 0.2 X10*3/uL [facility] NRBC Abs Auto 0.000 0.0 - 0.012 X10*3/uL [facility] 09/19/2024 11:3 2 PM EST 09/19/2024 11:41 PM EST us Generic External Data Provider LAB BLOOD ORDERAB LES Final Result [facility] [address] [place] [phone] * (ABNORMAL) Comprehensive Metabolic Panel (09/19/2024 11:32 PM EST) Sodium 144 135 - 145 mmol/L [facility] Potassium 4.5 3.3 - 5.1 mmol/L [facility] Chloride 109(H) 96 - 108 mmol/L [facility] Carbon Dioxide 26 22 - 29 mmol/L [facility] Anion Gap 14 12 - 20 [facility] Urea Nitrogen (BUN) 22(H) 9 - 16 mg/dL [facility] Creatinine, Serum 0.68 0.5 - 1.4 mg/dL [facility] Creatinine Clr Calc Pharmacy 138.7 [facility] Comment:eGFR (calculated fro m the MDRD study equation) and eCrCl(calculated from the Cockcroft-Gault equation) are based ondifferent parameters and may not yield comparable results.If eCrCl result is absurd, please check patient'sheight/weight. Estimated Glomerular Filt Rate >60 [facility] Comment:Chronic Kidney Disea se: Estimated GFR < 60 mL/min/1.75n5Ffmrqu Kidney Disease: Estimated GFR < 15 mL/min/1.73m2 Glucose 109 60 - 115 mg/dL [facility] Calcium 9.0 8.4 - 10.2 mg/dL [facility] Bilirubin, Total 0.4 0.0 - 1.0 mg/dL [facility] Aspartate Amino Transferase 18 5 - 37 U/L [facility] Alanine Aminotransferase 10 0 - 40 U/L [facility] Total Protein 7.2 6.5 - 8.0 g/dL [facility] Albumin Level 4.0 3.5 - 5.0 g/dL [facility] Alkaline Phosphatase 91 39 - 117 U/L [facility] 09/19/2024 11:3 2 PM EST 09/19/2024 11:41 PM EST us Generic External Data Provider LAB BLOOD ORDERAB LES Final Result [facility] [address] [place] [phone] * Influenza A B2 ID NOW ([place]) (09/04/2024 11:57 PM EST) IDNOW SERIAL# [id number] [facility] Influenza A Negative Negative [facility] Influenza B2 Negative Negative [facility] Influenza A B2 Note See Note [facility] Comment:The [place] ID NOW In [...] GENERAL ORDERABLES Final Result Performing Organization Address City/[facility]/ZIP Co de Phone Number [facility] [address] [place] [phone] * COVID-19 ID NOW ([place]) (09/04/2024 11:57 PM EST) IDNOW SERIAL# [id number] [facility] COVID-19 TEST Negative Negative [facility] COVID-19 NOTE See Note [facility] Comment: Results are for the identification of SARS-CoV2 RNA. TheSARS-CoV2 RNA is generally detectable in respiratory samplesduring the acute phase of infection. Positive results areindicative of the presence of SARS-CoV-2 RNA; clinicalcorrelation with patient history and other diagnosticinformation is necessary to determine patient infectionstatus. Positive results do not rule out bacterial infectionor co- infection with other viruses.Testing facilities within the [facility] and itsterritories are required to [...] use by authorized laboratories.Testing performed on the [place] ID NOW utilizing NAAT. 09/04/2024 11:5 7 PM EST 09/05/2024 us Generic External Data Provider LAB MOLECULAR RHODA GNOSTICS ORDERABLES Final Result Performing Organization Address City/[facility]/ZIP Co de Phone Number [facility] [address] [place] [phone] * HEPATITIS C ANTIBODY RFLX (10/28/2019 12:00 PM EDT) HEPATITIS C ANTIBODY NONREACTIVE [facility] Comment: Antibodies to HCV not detected; does not exclude early acute HCV infection. 10/28/2019 12:0 0 PM EDT Jacinto Diaz MD HISTORICAL/NON ORDERABLE LABS Final Result Performing Organization Address [facility] de Phone Number [facility] [address] * HIV AB/AG (10/28/2019 12:00 PM EDT) HIV AG/AB NONREACTIVE [facility] Comment: HIV-1 p24 Ag and/or HIV-1/HIV-2 Ab not detected. ?? A test result that is nonreactive does not exclude the possibility of exposure to or infection with HIV-1 and/or HIV-2. Nonreactive results in this assay for individuals with prior exposure to HIV-1 and/or HIV-2 may be due to antigen and antibody levels that are below the limit of detection of this assay. ?? The [facility] [employer] Coord[employer] HIV Ag/Ab Combo assay result and supplemental assay results should be interpreted in conjunction with the patient's clinical presentation, history and other laboratory results. ??If the results are inconsistent with clinical evidence, additional testing is suggested to confirm the result. 10/28/2019 12:0 0 PM EDT Jacinto Diaz MD HISTORICAL/NON ORDERABLE LABS Final Result Performing Organization Address [facility] Phone Number [facility] [address] from Last 3 Months or Most Recently Relevant to Health Maintenance Insurance [facility] C3
[2024-09-20 01:27] VITALS: BP 99/64; PULSE 40; O2SAT 100
--- NOTE | 2024-09-20 02:06 | ED.GENADULT ---
HPI - General Adult General Chief complaint: General Medical Stated complaint: flu like Time Seen by Provider: 09/20/24 01:12 Source: patient Mode of arrival: ambulatory Limitations: no limitations History of Present Illness ED Provider: HPI narrative: Patient with a history of previous use of opiates on methadone now denied any substance abuse now comes here for 2 weeks of cough which is not getting better patient was seen here on 09/05/23 with similar presentation refused to stay in the hospital on arrival noted to have blood pressure above 88/51 with pulse rate of 50 patient has been very sleepy patient denied any chest pain did not any substance abuse now Related Data Previous Rx's ?Medication ?Instructions ?Recorded albuterol sulfate 90 mcg/actuation 2 puff inhalation Q4-6H PRN 11/18/22 aerosol inhaler shortness of breath or wheezing #6.7 grams amoxicillin 500 mg capsule 500 mg PO BID #20 caps 11/18/22 ibuprofen 800 mg tablet 800 mg PO Q8H PRN fever or pain 11/18/22 #10 tabs cephalexin 500 mg capsule 500 mg PO QID 10 days #40 caps 03/07/23 ibuprofen 600 mg tablet 600 mg PO Q6H PRN fever or pain 03/07/23 #30 tabs doxycycline hyclate 100 mg tablet 100 mg PO BID #20 tabs 09/20/24 Allergies Allergy/AdvReac Type Severity Reaction Status Date / Time No Known Allergies Allergy Verified 09/19/24 23:26 Review of Systems Review of Systems: Yes all other systems are reviewed and are negative PMFSH Social History Social History Smoked in Last 30 Days: Yes Use of substances other than those prescribed or required for medical reasons: Yes Substance Use Type: Marijuana Substance Use Frequency: Daily Last Used Substance: Hours (ago) Any prior treatment program specific to substance use: No Advance Directives: No Advance Directives Information Provided: Yes Do you have a plan to hurt others: No Plan Physical Exam ED Vital Signs: Vital Signs - 24 hr 09/19/24 23:25 09/20/24 00:32 09/20/24 01:27 Temperature 97.6 F 97.5 F Pulse Rate 50 41 L 40 L Respiratory Rate 16 12 Blood Pressure 88/51 L 89/58 L 99/64 Pulse Oximetry 96 100 100 Oxygen Delivery Method Room Air Room Air Room Air BMI result Body Mass Index 21.3 Appearance: Alert. Oriented X3. No acute distress. Sleepy but arousable Eyes: PERRLA, No Nystagmus ENT: Pharynx normal. Oral Mucosa very dry Neck: Normal inspection. Neck supple. CVS: Normal heart rate and rhythm. Pulses normal. Respiratory: No respiratory distress. Equal air entry bilateral, no wheezing/rales/rhonchi Abdomen: Soft and nontender. Bowel sounds are present, no mass palpable, no CVA tenderness Skin: Skin warm and dry. Normal skin color. Normal skin turgor. Extremities: No lower extremity edema. No calf tenderness Neuro: Oriented X 3. No motor deficit. No sensory deficit.No cerebellar signs , cranial nerves II-XII intact Medications Administered Discontinued Medications Generic Name Dose Route Start Last Admin Trade Name Freq PRN Reason Stop Dose Admin Doxycycline Monohydrate 100 mg 09/20/24 01:52 09/20/24 02:24 Doxycycline Monohydrate 100 Mg Capsule PO 09/20/24 01:53 100 mg ONCE ONE Administration Sodium Chloride 1,000 mls @ 999 mls/hr 09/20/24 02:07 09/20/24 03:52 Ns IV 09/20/24 03:07 Infused .Q1H1M ONE Infusion Medical Decision Making Lab Data [facility] Lab Attestation statement: I reviewed the patient's lab results. 09/19/24 23:32 09/19/24 23:32 Labs: Lab Results 09/19/24 09/20/24 09/20/24 Range/Units 23:32 02:22 03:51 WBC 6.7 (4.8-10.8) X10*3/uL RBC 4.44 L (4.60-5.80) X10*6/uL Hgb 11.7 L (14.0-18.0) g/dl Hct 35.6 L (42.0-52.0) % MCV 80.2 (80.0-98.0) fL MCH 26.4 L (27.0-33.0) pg MCHC 32.9 (31.0-36.0) g/dl RDW 13.6 (11.0-16.0) % Plt Count 176 (160-400) X10*3/uL MPV 9.4 (9.4-12.4) fL Immature Gran % (Auto) 0.1 (0.0-0.4) % Neut % (Auto) 66.8 (45-73) % Lymph % (Auto) 21.7 (20-40) % [place] % (Auto) 8.1 (2-11) % Eos % (Auto) 3.0 (0-4) % Baso % (Auto) 0.3 (0-2) % Lymph # (Auto) 1.5 (1.2-4.9) X10*3/uL [place] # (Auto) 0.5 (0.1-1.2) X10*3/uL Eos # (Auto) 0.2 (0.0-0.4) X10*3/uL Baso # (Auto) 0.0 (0.0-0.2) X10*3/uL Abs Immat Gran (auto) 0.01 (0.00-0.03) X10*3/uL Absolute Neuts (auto) 4.5 (2.0-8.3) x10*3/uL Absolute Nucleated RBC 0.000 (0.0-0.012) X10*3/uL Nucleated RBC % (auto) 0.0 (0.0-0.2) /100WBC Sodium 144 (135-145) mmol/L Potassium 4.5 (3.3-5.1) mmol/L Chloride 109 H (96-108) mmol/L Carbon Dioxide 26 (22-29) mmol/L Anion Gap 14 (12-20) BUN 22 H (9-16) mg/dL Creatinine 0.68 (0.5-1.4) mg/dL Estim Creat Clear Calc 138.7 Estimated GFR > 60 Random Glucose 109 (60-115) mg/dL Lactic Acid 1.1 (0.5-2.0) mmol/L Calcium 9.0 (8.4-10.2) mg/dL Total Bilirubin 0.4 (0.0-1.0) mg/dL AST 18 (5-37) U/L ALT 10 (0-40) U/L Alkaline Phosphatase 91 (39-117) U/L Total Protein 7.2 (6.5-8.0) g/dL Albumin 4.0 (3.5-5.0) g/dL Urine Color Yellow Urine Appearance Clear Urine pH 6.5 (5.0-9.0) Ur Specific [place] >= 1.030 H (1.005-1.025) Urine Protein Negative (Neg-Trace) mg/dL Urine Glucose (UA) 250 H (Negative) mg/dL Urine Ketones Negative (Negative) mg/dL Urine Blood Negative (Negative) Urine Nitrite Negative (Negative) Ur Leukocyte Esterase Negative (Negative) Urine RBC 0-2 (0-2) /HPF Urine WBC 0-5 (0-5) /HPF Ur Squamous Epith Cells 0-2 (0-2) /HPF Urine Bacteria None Seen (None Seen) Hyaline Casts 0-2 (0-2) /LPF Urine Opiates Screen Not Detected (Not Detect) Ur Buprenorphine Scrn Not Detected (Not Detect) ng/mL Ur Oxycodone Screen Not Detected (Not Detect) ng/mL Urine Methadone Screen Positive H (Not Detect) ng/mL Urine Fentanyl Screen POSITIVE H (Not Detect) Ur Barbiturates Screen Not Detected (Not Detect) Ur Phencyclidine Scrn Not Detected (Not Detect) Ur Amphetamines Screen Not Detected (Not Detect) U Benzodiazepines Scrn Not Detected (Not Detect) Urine Cocaine Screen Not Detected (Not Detect) U Marijuana (THC) Screen POSITIVE H (Not Detect) Influenza Type A (PCR) NEGATIVE (Negative) Influenza Type B (PCR) NEGATIVE (Negative) RSV RNA Qual (PCR) NEGATIVE (Negative) SARS-CoV-2 RNA (RT-PCR) NEGATIVE (Negative) S. pyogenes GrpA BRIAN Negative (Negative) Discharge Plan Discharge Clinical Impression: Acute bronchitis Patient Disposition: Home, Self-Care Instructions: Acute Bronchitis (ED), Opioid Use Disorder (ED) Additional Instructions: Take antibiotic as prescribed Do not take any drugs other than prescribed Report to the ER if passing out episode Prescriptions: New doxycycline hyclate 100 mg tablet 100 mg PO BID Qty: 20 0RF No Action amoxicillin 500 mg capsule 500 mg PO BID Qty: 20 0RF ibuprofen 800 mg tablet 800 mg PO Q8H PRN (Reason: fever or pain) Qty: 10 0RF albuterol sulfate 90 mcg/actuation HFA aerosol inhaler 2 puff inhalation Q4-6H PRN (Reason: shortness of breath or wheezing) Qty: 6.7 0RF cephalexin 500 mg capsule 500 mg PO QID 10 Days Qty: 40 0RF ibuprofen 600 mg tablet 600 mg PO Q6H PRN (Reason: fever or pain) Qty: 30 0RF Interventions: ED Discharge Assessment Last Done: 09/20/24 05:49 Discharge Date/Time: 09/20/24 05:50 Print Language: Nauruan
[2024-09-20] MEDS: 0.9 % Sodium Chloride 1,000 ML 999 ML IV (02:24)
[2024-09-20] MEDS: Doxycycline Monohydrate 100 MG CAPSULE PO (02:24)
[2024-09-20 02:44] LABS: Lactic Acid 1.1 mmol/L (0.5-2.0)
--- NOTE | 2024-09-20 03:16 | PC.NURSE ---
HR remaining to be 39-59, BP 99/64. Patient continues to deny dizziness, lightheadedness, chest pain, SOB. Dr. Page is aware, no new orders at this time.
[2024-09-20 03:36] VITALS: BP 94/66; PULSE 46; RESP 12; TEMP 36.6; O2SAT 99
[2024-09-20 03:59] LABS: Appearance Urine Clear; Color Urine Yellow; Glucose Urine UA 250 mg/dL (Negative); Leukocyte Esterase Urine Negative (Negative); Nitrite Urine Negative (Negative); PH 6.5 (5.0-9.0); Specific Gravity - Urine >= 1.030 (1.005-1.025); Urine Blood Negative (Negative); Urine Ketones Negative (Negative); Urine Protein Negative (Neg-Trace)
[2024-09-20 04:04] LABS: Bacteria Urine None Seen (None Seen); Hyaline Casts Urine 0-2 /LPF (0-2); RBC Urine 0-2 /HPF (0-2); Squamous Epithelial Cell Urine 0-2 /HPF (0-2); WBC Urine 0-5 /HPF (0-5)
[2024-09-20 04:10] LABS: Amphetamine Screen Urine Not Detected (Not Detect); Barbiturates, Urine Not Detected (Not Detect); Benzodiazepines Screen Urine Not Detected (Not Detect); Buprenorphine Scr Not Detected (Not Detect); Cannabinoid Screen Urine POSITIVE (Not Detect); Cocaine Screen Urine Not Detected (Not Detect); Fentanyl, urine POSITIVE (Not Detect); Methadone Screen, Urine Positive (Not Detect); Opiate Screen Urine Not Detected (Not Detect); Oxycodone Screen Urine Not Detected (Not Detect); Phencyclidine Screen Urine Not Detected (Not Detect)
[2024-09-20 05:49] VITALS: BP 97/61; PULSE 51; RESP 14; TEMP 36.6; O2SAT 98
== END 2024-09-20 05:50 | disposition home or self-care (01) ==
PROVIDERS: Emergency Provider Internal Medicine
DX: J20.9 Acute bronchitis, unspecified (principal); R05.9 Cough, unspecified; Z03.818 Encounter for observation for suspected exposure to other biological agents ruled out; F19.10 Other psychoactive substance abuse, uncomplicated; F11.20 Opioid dependence, uncomplicated
CPT/HCPCS: 0241U; 36415; 71045; 80053; 80307; 81001; 83605; 85025; 87040; 87651; 93005; 96360; 99285

== ENCOUNTER → 2024-09-19 23:31 | Outpatient (BNV) | payer MEDICAID, SELFPAY | PROVIDERS: Visit Provider General Practice | DX: R05.9 Cough, unspecified (principal) | CPT/HCPCS: 71045 ==

== ENCOUNTER → 2024-09-19 23:48 | Outpatient (BNV) | payer MEDICAID, SELFPAY | PROVIDERS: Emergency Provider Internal Medicine; Visit Provider Internal Medicine Cardiovascular Disease | DX: I49.9 Cardiac arrhythmia, unspecified (principal); R00.1 Bradycardia, unspecified | CPT/HCPCS: 93010 ==

== ENCOUNTER 2024-10-09 00:46 | Emergency (ER) | payer MEDICAID, SELFPAY ==
--- NOTE | ~2024-10-09 | XR_ITS ---
CLINICAL HISTORY: fall low back pain 3 views lumbar spine Comparison: None Findings: Normal alignment. No acute fractures or dislocation. No significant degenerative change. IMPRESSION: No acute findings. This document has been electronically signed by: Iban Nam MD on 10/09/2024 01:55:30
[2024-10-09 00:49] VITALS: BP 90/52; PULSE 58; RESP 17; TEMP 36.5; O2SAT 98; BMI 20.7
[2024-10-09 04:08] VITALS: BP 83/58; PULSE 54; RESP 16; TEMP 36.9; O2SAT 98
[2024-10-09 04:48] LABS: Amphetamine Screen Urine Not Detected (Not Detect); Barbiturates, Urine Not Detected (Not Detect); Benzodiazepines Screen Urine Not Detected (Not Detect); Buprenorphine Scr Not Detected (Not Detect); Cannabinoid Screen Urine POSITIVE (Not Detect); Cocaine Screen Urine Not Detected (Not Detect); Fentanyl, urine POSITIVE (Not Detect); Methadone Screen, Urine Positive (Not Detect); Opiate Screen Urine POSITIVE (Not Detect); Oxycodone Screen Urine Not Detected (Not Detect); Phencyclidine Screen Urine Not Detected (Not Detect)
--- NOTE | 2024-10-09 04:50 | PC.NURSE ---
pt noted to be hypotensive/bradycardic x 2 by tech. per previous [facility] visits, pt noted to be hypotensive as well as bradycardic. pt states that this is his baseline. denies feeling dizzy/lightheaded. pt seemingly sleepy while conversating at this time. provider notified/aware. utox obtained/sent to lab.
[2024-10-09] MEDS: Ibuprofen 600 MG TABLET PO (05:33)
[2024-10-09] MEDS: Acetaminophen 325 MG TABLET 975 MG PO (05:33)
--- NOTE | 2024-10-09 05:34 | PC.NURSE ---
pt medicated per provider order.
[2024-10-09 05:41] VITALS: BP 89/61; PULSE 46; RESP 18; TEMP 36.8; O2SAT 100
[2024-10-09 05:42] VITALS: BP 93/60; PULSE 44; RESP 14; TEMP 36.8; O2SAT 100
--- NOTE | 2024-10-09 05:42 | PC.NURSE ---
pt remains hypotensive/bradycardic at this time. vitals obtained multiple times in all extremities. provider notified/aware. per provider order, IV access would be placed and 1L NS would be infused but patient refused. pt educated on importance but still refused. provider notified/aware/ok w/ pt being discharged.
[2024-10-09 05:44] VITALS: BP 93/60; PULSE 44; RESP 14; TEMP 36.8; O2SAT 100
--- NOTE | 2024-10-09 06:20 | ED.BACK ---
HPI - Back Pain/Injury General Chief Complaint: Back Pain/Injury Stated Complaint: lower back pain Time Seen by Provider: 10/09/24 05:19 Source: patient Mode of arrival: ambulatory Limitations: no limitations History of Present Illness ED Provider: Dr. Oralia Palencia HPI Narrative: Patient comes to the emergency room complaining of 2 days of lower back pain in the coccyx area. Patient states that he slipped on ice and landed on his buttocks. Patient denies any other injury, denies hitting his head or losing consciousness, patient denies being on blood thinners. Patient states that he denies any urinary/ fecal incontinence or retention. Denies any lower extremity weakness, numbness or tingling. Related Data Previous Rx's ?Medication ?Instructions ?Recorded albuterol sulfate 90 mcg/actuation 2 puff inhalation Q4-6H PRN 11/18/22 aerosol inhaler shortness of breath or wheezing #6.7 grams amoxicillin 500 mg capsule 500 mg PO BID #20 caps 11/18/22 ibuprofen 800 mg tablet 800 mg PO Q8H PRN fever or pain 11/18/22 #10 tabs cephalexin 500 mg capsule 500 mg PO QID 10 days #40 caps 03/07/23 ibuprofen 600 mg tablet 600 mg PO Q6H PRN fever or pain 03/07/23 #30 tabs doxycycline hyclate 100 mg tablet 100 mg PO BID #20 tabs 09/20/24 acetaminophen 500 mg tablet 500 mg PO Q6H PRN fever or pain 10/09/24 #14 tabs cyclobenzaprine 10 mg tablet 10 mg PO TID PRN muscle spasm #10 10/09/24 tabs ibuprofen 600 mg tablet 600 mg PO Q8H PRN fever or pain 10/09/24 #14 tabs Allergies Allergy/AdvReac Type Severity Reaction Status Date / Time No Known Allergies Allergy Verified 10/09/24 00:51 Review of Systems Review of Systems: Constitutional : No Weight loss, No Fever, No Chills, No Night Sweats, No Fatigue, No Malaise ENT/Mouth : No Hearing loss, No Ear Pain, No Nasal Congestion, No Sinus Pain, No Hoarseness, No sore throat, No Rhinorrhea, No Swallowing Difficulty Eyes: No Eye Pain, No Swelling, No Redness, No Foreign Body, No Discharge, No Vision Changes Cardiovascular : No Chest Pain, No SOB, No Dyspnea on Exertion, No Orthopnea, No Edema, No Palpitations Respiratory : No Cough, No Sputum, No Wheezing, No Smoke Exposure, No Dyspnea Gastrointestinal : No Nausea, No Vomiting, No Diarrhea, No Constipation, No abdominal Pain, No Hematochezia, No Melena Genitourinary : no irregular bleeding, No Dysuria, No Urinary Frequency, No Hematuria, No Urinary Incontinence, No Urgency, No Flank Pain, No Urinary Flow Changes, No Hesitancy Musculoskeletal : Complaining of lower back pain in the lumbar region, No joint pain, No Myalgias, No Joint Swelling Skin : No Skin Lesions, No rash Neuro : No Weakness, No Numbness, No Paresthesias, No Loss of Consciousness, No Dizziness, No Headache Psych : No Anxiety/Panic, No Depression, No SI/HI/AH/VH, No Social Issues, Heme/Lymph: No Bruising, No Bleeding,No Lymphadenopathy Endocrine : No Polyuria, No Polydipsia, No Temperature Intolerance [facility] Social History Social History Substance Use Type: Marijuana Advance Directives: No Advance Directives Information Provided: Yes Do you have a plan to hurt others: No Plan Physical Exam Vital Signs: Vital Signs: Last Vital Signs Temp 98.2 F 10/09/24 05:44 Pulse 44 L 10/09/24 05:44 Resp 14 10/09/24 05:44 BP 93/60 10/09/24 05:44 Pulse Ox 100 10/09/24 05:44 O2 Del Method Room Air 10/09/24 05:44 BMI result Body Mass Index 20.7 Const: Other: Appearance: Alert. Oriented X3. No acute distress. Eyes: Pupils equal, round and reactive to light. ENT: Pharynx normal. Neck: Normal inspection. Neck supple. No lymph nodes noted. No crepitus CVS: Normal heart rate and rhythm. Pulses normal. Normal S1 and S2 Respiratory: No respiratory distress. Breath sounds normal. No Wheezing. No rales Abdomen: Soft and nontender. No rigidity. No distention. back: Pain to palpation over the coccyx and lumbar area, no ecchymosis, no deformities. Skin: Skin warm and dry. Normal skin color. Normal skin turgor. Extremities: No lower extremity edema. No Lacerations. No Rash Neuro: Oriented X 3. No motor deficit. No sensory deficit. Moving all extremities. No slurred speech. CN 2 through 12 grossly intact Psych: calm, cooperative, normal affect Medications Administered Discontinued Medications Generic Name Dose Route Start Last Admin Trade Name Erika PRN Reason Stop Dose Admin Acetaminophen 975 mg 10/09/24 05:26 10/09/24 05:33 Acetaminophen 325 Mg Tablet PO 10/09/24 05:27 975 mg ONCE ONE Administration Ibuprofen 600 mg 10/09/24 05:26 10/09/24 05:33 Ibuprofen 600 Mg Tablet PO 10/09/24 05:27 600 mg ONCE ONE Administration Medical Decision Making Medical Decision Making [facility] Narrative: X-rays did not show any acute abnormalities patient states that he has not taking any Tylenol of ibuprofen for the pain since he fell patient provided with both Tylenol and Motrin prior to discharge patient ambulatory also, I was informed by the patient's nurse with the patient's name a bit somnolent and had low blood pressure. In the 90s. Patient's urine toxicology positive for opiates/ methadone/fentanyl. IV fluids were recommended, patient declined, patient would like to be discharged home. Patient was discharged with a blood pressure of 93/60, oxygen saturation 100%, alert and oriented x3 Lab Data [facility] Lab Attestation statement: I reviewed the patient's lab results. Labs: Lab Results 10/09/24 Range/Units 04:32 Urine Opiates Screen POSITIVE H (Not Detect) Ur Buprenorphine Scrn Not Detected (Not Detect) ng/mL Ur Oxycodone Screen Not Detected (Not Detect) ng/mL Urine Methadone Screen Positive H (Not Detect) ng/mL Urine Fentanyl Screen POSITIVE H (Not Detect) Ur Barbiturates Screen Not Detected (Not Detect) Ur Phencyclidine Scrn Not Detected (Not Detect) Ur Amphetamines Screen Not Detected (Not Detect) U Benzodiazepines Scrn Not Detected (Not Detect) Urine Cocaine Screen Not Detected (Not Detect) U Marijuana (THC) Screen POSITIVE H (Not Detect) Independent Interpretation I performed an independent interpretation of an: Plain X-Ray Radiology Impression Discussion of test interpretation with radiology: I have reviewed the radiologist's reading. Radiologist Impression: Normal alignment. No acute fractures or dislocation. No significant degenerative change. IMPRESSION: No acute findings. Discharge Plan Discharge Clinical Impression: Lumbar contusion Patient Disposition: Home, Self-Care Instructions: Contusion in Adults (ED) Additional Instructions: Please follow-up with your primary care physician tomorrow. If you have any worsening or new symptoms, please return to the emergency room or call 911 Prescriptions: New ibuprofen 600 mg tablet 600 mg PO Q8H PRN (Reason: fever or pain) Qty: 14 0RF acetaminophen 500 mg tablet 500 mg PO Q6H PRN (Reason: fever or pain) Qty: 14 0RF cyclobenzaprine 10 mg tablet 10 mg PO TID PRN (Reason: muscle spasm) Qty: 10 0RF No Action amoxicillin 500 mg capsule 500 mg PO BID Qty: 20 0RF ibuprofen 800 mg tablet 800 mg PO Q8H PRN (Reason: fever or pain) Qty: 10 0RF albuterol sulfate 90 mcg/actuation HFA aerosol inhaler 2 puff inhalation Q4-6H PRN (Reason: shortness of breath or wheezing) Qty: 6.7 0RF cephalexin 500 mg capsule 500 mg PO QID 10 Days Qty: 40 0RF ibuprofen 600 mg tablet 600 mg PO Q6H PRN (Reason: fever or pain) Qty: 30 0RF doxycycline hyclate 100 mg tablet 100 mg PO BID Qty: 20 0RF Interventions: ED Discharge Assessment Last Done: 10/09/24 05:44 Discharge Date/Time: 10/09/24 05:46 Print Language: Kazakh
== END 2024-10-09 05:46 | disposition home or self-care (01) ==
PROVIDERS: Emergency Provider Emergency Medicine
DX: S30.0XXA Contusion of lower back and pelvis, initial encounter (principal); W00.0XXA Fall on same level due to ice and snow, initial encounter; Y93.89 Activity, other specified; Y92.89 Other specified places as the place of occurrence of the external cause; Y99.9 Unspecified external cause status; Z79.899 Other long term (current) drug therapy
CPT/HCPCS: 72100; 80307; 99283

== ENCOUNTER → 2024-10-09 01:15 | Outpatient (BNV) | payer MEDICAID, SELFPAY | PROVIDERS: Visit Provider Radiology Diagnostic Radiology | DX: M54.50 Low back pain, unspecified (principal); W00.0XXA Fall on same level due to ice and snow, initial encounter | CPT/HCPCS: 72100 ==